=== PATIENT | male | born 1950 | race Caucasian/White ===

== ENCOUNTER 2024-07-10 07:05 | Day surgery (SDC) | payer BC ==
[2024-07-09 16:40] VITALS: BMI 25.8
[2024-07-10] MEDS ORDERED: ACETAMINOPHEN 500 MG TABLET (FP) PO PRN (08:41)
[2024-07-10] MEDS: BUPIVACAINE HCL/PF 0.75% 10 ML VIAL NR ONE ×3 (09:33)
[2024-07-10] MEDS: LIDOCAINE 1% P/F 10 MG/ML VIAL INF ONE ×2 (09:33)
[2024-07-10 10:16] VITALS: BP 146/78; PULSE 78; RESP 20; TEMP 98
== END 2024-07-10 10:20 | disposition home or self-care (01) ==
LOC: JASU-SURG 07:05
PROVIDERS: ATTEND Pain Medicine Pain Medicine
PROC: 3E0T3BZ Introduction of Anesthetic Agent into Peripheral Nerves and Plexi, Percutaneous Approach (ICD-10-PCS; principal; 2024-07-10 09:45)
DX: M47.816 Spondylosis without myelopathy or radiculopathy, lumbar region (principal)
CPT/HCPCS: 76000-TC-FY